=== PATIENT | female | born 1965 | race Caucasian/White ===

== ENCOUNTER 2016-05-08 06:43 | Outpatient (CLI) ==
[2016-05-08 07:16] LABS: BASOPHILS % (AUTO) 0.4 % (0.0-3.0); EOSINOPHILS # (AUTO) 0.2 K/ul (0.0-0.7); EOSINOPHILS % (AUTO) 2.8 % (0.0-7.0); HEMATOCRIT 40.3 % (37.0-47.0); HEMOGLOBIN 13.5 g/dl (12.0-16.0); IMMATURE GRANULOCYTE % (AUTO) 0.1 % (0.0-5.0); LYMPHOCYTES % (AUTO) 29.5 (10.0-50.0); MEAN CORPUSCULAR HEMOGLOBIN 28.5 pg (27.0-31.0); MEAN CORPUSCULAR HGB CONC 33.5 (31.8-35.4); MONOCYTES # (AUTO) 0.5 K/uL (0.4-2.0); MONOCYTES % (AUTO) 7.3 (0-10); NEUTROPHILS % (AUTO) 59.9; PLATELET COUNT 285 10^3/uL (140-440); RED BLOOD COUNT 4.74 10^6/ul (4.20-5.40); WHITE BLOOD COUNT 6.75 K/ul (4.6-10.2)
[2016-05-08 07:29] LABS: BILIRUBIN,URINE Negative (NEGATIVE); KETONES,URINE Negative (NEGATIVE); LEUKOCYTE ESTERASE ,URINE Negative (NEGATIVE); NITRITE,URINE Negative (NEGATIVE); PROTEIN,URINE Negative (NEGATIVE); URINE, BLOOD Trace-intact (NEGATIVE)
[2016-05-08 07:33] LABS: ALBUMIN 3.7 g/dL (3.4-5.0); ALBUMIN/GLOBULIN RATIO 1.03; ANION GAP 13.9; BILIRUBIN,TOTAL 0.54 mg/dL (0.00-1.20); BUN/CREATININE RATIO 17.33; CALCIUM 9.3 mg/dL (8.2-10.2); CHOL/HDL RATIO 2.7 (4.5-5.5); CREATININE 0.75 mg/dL (0.60-1.30); POTASSIUM 3.9 mmol/L (3.5-5.10); TOTAL PROTEIN 7.3 g/dL (6.4-8.2)
[2016-05-08 07:40] LABS: ADD URINE MICROSCOPIC YES
[2016-05-08 07:41] LABS: BACTERIA,URINE 3+ (NOT PRESENT)
== END 2016-05-08 06:44 | disposition home or self-care (01) ==
LOC: LAB 06:43
PROVIDERS: ATTEND Family Medicine
DX: I10 Essential (primary) hypertension (principal); E78.5 Hyperlipidemia, unspecified; M51.37 Other intervertebral disc degeneration, lumbosacral region; F32.9 Major depressive disorder, single episode, unspecified; I51.7 Cardiomegaly; N95.1 Menopausal and female climacteric states
CPT/HCPCS: 36415; 80053; 80061; 81001; 85025

== ENCOUNTER 2016-06-10 15:02 | Outpatient (CLI) ==
--- NOTE | 2016-06-10 15:35 | DI ---
EXAM: LEFT HAND THREE VIEWS HISTORY: Hand pain without injury FINDINGS: Bone and joint structures appear normal. There is no fracture, joint dislocation, bone density abnormality or soft tissue finding. IMPRESSION: Within normal limits.
--- NOTE | 2016-06-10 15:40 | DI ---
Exam: Three x-rays of the right hand. Comparison: Right wrist x-rays performed on 10/10/2007. Reason for study: Pain. FINDINGS: No acute fracture or dislocation. The joint spaces are well maintained. Mild degenerati ve changes are seen within the liz and fourth DIP joint. Impression: No acute fracture or dislocation is seen in the right hand.
== END 2016-06-10 15:03 | disposition home or self-care (01) ==
LOC: RAD 15:02
PROVIDERS: ATTEND Family Medicine
DX: M79.642 Pain in left hand (principal); M79.641 Pain in right hand; M79.645 Pain in left finger(s); M79.644 Pain in right finger(s)

== ENCOUNTER 2016-07-01 15:00 | Outpatient (RCR) ==
--- NOTE | 2016-06-30 10:01 | RS.OPPTEV2 ---
Date of Note: 06/29/16 Visit #: 1 Date of Evaluation: 06/29/16 Payer Source: Medicaid Date of Onset/Injury/Change in Status: 03/08/16 Treatment Diagnosis: Lumbago with right sciatica History of Condition/Mechanism of Injury:: Patient reports low back and right LE pain. Patient notes that she was lifting something heavy last year, and ever since then she has had trouble with her back. Patient is hoping to avoid surgery. States she had therapy here for the same thing last year and it helped. She also has an inversion table that she uses it at times. Prior Level of Function.....Patient was independent with: ADL's, Self Care, Work /Vocation, Caregiving, Ambulation/Mobility, Community Integration/Access Functional Limitations: ADL's, Reaching, Pushing, Pulling, Lifting, Carrying, Sitting, Standing, Bending, Squatting, Community Access/Integration Current Subjective/complaints:: Patient reports low back pain and sciatic pain down the right LE. States sometimes pain goes all the way down to the foot, sometimes just to the knee. She has noticed weakness at times in the right LE. The right hip joint hurts occasionally. She has tried ice, heat, icy hot. She started taking Neurontin a few weeks ago, and she feels it has helped. 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 Treatment Side (optional): Right Medical History Medical History: Unremarkable Surgical History: Tonsillectomy Smoking Status: Never smoker Diagnostic Testing/Imaging:: Reports no recent tests. Hx Home Medications: gabapentin, flexeril, meloxicam, skelaxin,lipitor, cozaar, naproxen Patient's Goals: Her goal is to get relief of pain and avoid back surgery. Pain Assessment - Pain Description Pain Location: lumbar/R hip region Current Pain Intensity: 6/10 Worst Pain Intensity: 10/10 Functional Outcome Measure Oswestry LBP: 42 - G Codes & Severity Modifier G Codes & Modifier: NA Source of G Code score: NA Observation - Observation Posture: Forward Head, Decreased Lumbar Lordosis Gait - Gait Pattern Gait Comments: Patient ambulates without an obvious gait deviation. - ROM Lumbar Flexion: Hand reach to Mid-Shins Sidebending to Left: Reach to Lateral Joint Line Sidebending to Right: Reach to Lateral Joint Line Comments: Lumbar extension WFL's. Reports mainly a "pull" felt with lumbar flexion and side bending. Bilateral LE AROM is WFL's. - Strength Trunk Rotation: 4- Good- Comments: bilateral LE strength generally 4 to 4+/5. - Special Tests ANA LUISA Test: Negative Left, Positive Right SLR Test: Negative Left, Positive Right Seated Dural Stretch Test: Negative Left, Positive Right SI Joint Compression: Positive Palpation Comments:: Patient reports tenderness with moderate pressure over the lumbar spinous processes of L2-L4. Demonstrates moderate muscle guarding along bilateral lumbar paraspinals. No tenderness reported with palpation to either SI joint or superior gluteal musculature. Sensation - Sensation Right Lower Extremity: Intact/Normal Left Lower Extremity: Intact/Normal Additional Comments: Additional Comments: right LE slightly longer in supine. HS length are unequal : right SLR to 40-45 degrees, left to 50 degrees. - Treatment Modality: Ultrasound Parameters/Method Applied: 1.5 w/cm2 continous X 10 mins to lumbar paraspinals with emphasis on right side. Patient Position: Right Sidelying Interventions - Exercise/Activities/Manual Therapy Exercises/Activities: Instructed in HS stretch, with main focus on the right. Manual Therapy: NA HOME EXERCISE PROGRAM: HS stretch (more on the right LE) - Charges Total Direct Minutes: 45 mins Total Treatment Time: 45 mins Procedures billed for this date of service:: NAGI [place], US Assessment Assessment: Patient presents to therapy with reports of low back and right LE pain. She demonstrates tenderness along the lumbar spine and moderate muscle guarding along the lumbar paraspinals. She demonstrates positive signs of pelvis dysfunction along with possible disc invovlement. She will benefit from modalities to reduce her tenderness, and progressed exercises to address flexibilty imbalances and progress lumbar/pelvis stability exercises to relieve her symptoms. Patient Education: Education of diagnosis, Body/Joint mechanics, Home Exercise Program, Education of Plan of Care Rehab Potential: Good Short Term Goals Goal #1: Patient independent with basic HEP. Goal to be met by: 07/14/16 Goal #2: Right LE pain localized to the right low back. Goal to be met by: 07/14/16 Goal #3: Pt will report minimal to no tenderness along the lumbar spine. Goal to be met by: 07/14/16 [facility] Goals Goal #1: Pt knows HEP and to cont. Ex's to maintain functional level at D/C. Goal to be met by: 08/09/16 Goal #2: Score on Oswestry LBP scale improved to 18. Goal to be met by: 08/09/16 Goal #3: Pt able to tolerate work activities without back or RLE pain. Goal to be met by: 08/09/16 Goal #4: Pt to demo. understanding of back safety and proper body mechanics. Goal to be met by: 08/09/16 Plan - Treatment to be Provided Procedures: Therapeutic Exercises, Therapeutic Activity, Manual Therapy, Patient Education Modalities: Electrical Stimulation, Ultrasound/Phonophoresis, Cryotherapy, Hot Packs - Treatment Plan Frequency: 3 X week Duration: 4 weeks ORDER # VISITS AND/OR THROUGH DATE: 08/09/16 - Treatment Code (1) Low back pain Qualifiers: Chronicity: acute Back pain laterality: right Sciatica presence: with sciatica Sciatica laterality: sciatica of right side Qualified Description: Acute right-sided low back pain with right-sided sciatica Qualifier Code(s): (M54.41) Lumbago with sciatica, right side (2) Degeneration of lumbar intervertebral disc Comments: M51.36 (3) SI (sacroiliac) joint dysfunction Comments: M53.3
--- NOTE | 2016-07-01 16:38 | RS.OPPTDN ---
Subjective Date of Note: 07/01/16 Visit #: 2 Date of Evaluation: 06/29/16 Payer Source: Medicaid Treatment Diagnosis: Lumbago with right sciatica Current Subjective/complaints:: Reports feeling pretty good at this time,her pain is less when lying down,varies while up. Pain Assessment - Pain Description Pain Location: lumbar/R hip region Pain Description: L hip /low back more than R side today Current Pain Intensity: 0 at rest,not rayed standing - Treatment Modality: Ultrasound Parameters/Method Applied: 10 mins. @ 1.5 w/cm2 ,continuous mode to lumbar. Patient Position: Right Sidelying - Heat/Cryotherapy Treatment: Hot Pack (20 mins. prior to US,and exercises) Interventions - Exercise/Activities/Manual Therapy Exercises/Activities: 20 mins. return demo of SKTC,pelvic tilts,piriformis stretch,90/90 hamstring stretches,LTR. Total minutes of Exercise: 20 Manual Therapy: NA Total minutes of Manual Therapy: 0 HOME EXERCISE PROGRAM: HS stretch (more on the right LE) - Charges Total Direct Minutes: 30 Total Treatment Time: 50 Procedures billed for this date of service:: hp,US,ex Assessment: Initially,patient reports LBP with flexion exercises ,but improved as exercises progressed.She has good hamstring extensibility bilaterally today.The L piriformis stretch elicits mild pain ,none on the R . Patient Education: Education of diagnosis, Body/Joint mechanics, Home Exercise Program, Home Safety, Activity Modification, Education of Plan of Care Short Term Goals Goal #1: Patient independent with basic HEP. Goal to be met by: 07/14/16 Progress towards Goal:: Progressing Goal #2: Right LE pain localized to the right low back. Goal to be met by: 07/14/16 Goal #3: Pt will report minimal to no tenderness along the lumbar spine. Goal to be met by: 07/14/16 Security Manager Goals Goal #1: Pt knows HEP and to cont. Ex's to maintain functional level at D/C. Goal to be met by: 08/09/16 Goal #2: Score on Oswestry LBP scale improved to 18. Goal to be met by: 08/09/16 Goal #3: Pt able to tolerate work activities without back or RLE pain. Goal to be met by: 08/09/16 Goal #4: Pt to demo. understanding of back safety and proper body mechanics. Goal to be met by: 08/09/16 Plan PLAN OF CARE EXPIRES ON:: 08/09/16 ORDER # VISITS AND/OR THROUGH DATE: 08/09/16 PLAN: Continue Plan of Care
== END 2016-07-05 ==
PROVIDERS: ATTEND Nurse Practitioner Family
DX: M51.36 Other intervertebral disc degeneration, lumbar region (principal); R20.2 Paresthesia of skin

== ENCOUNTER 2016-07-28 15:00 | Outpatient (RCR) ==
--- NOTE | 2016-07-06 16:28 | RS.OPPTDN ---
Subjective Date of Note: 07/06/16 Visit #: 3 Date of Evaluation: 06/29/16 Payer Source: Medicaid Treatment Diagnosis: Lumbago with right sciatica Current Subjective/complaints:: Reports her hips are bothering her a little more today,had busy day at work. Pain Assessment - Pain Description Pain Location: lumbar/R hip region Pain Description: Dull, Aching Pain Description: L hip /low back more than R side today Current Pain Intensity: 6/10 - Treatment Modality: Ultrasound Parameters/Method Applied: 10 mins. @ 1.5 w/cm2 to lumbar. Patient Position: Right Sidelying - Heat/Cryotherapy Treatment: Hot Pack (concurrent with e-stim) Interventions - Exercise/Activities/Manual Therapy Exercises/Activities: 20 mins. SKTC,pelvic tilts,piriformis stretch,90/90 hamstring stretches,LTR. Total minutes of Exercise: 20 Manual Therapy: NA Total minutes of Manual Therapy: 0 HOME EXERCISE PROGRAM: HS stretch (more on the right LE) - Charges Total Direct Minutes: 30 Total Treatment Time: 50 Procedures billed for this date of service:: hp,US,ex 1 Assessment: Patient has less muscle guarding today as the exercisesprogres.She has improved hamstring extensibility biaterallt.She is tighter in the R aspect of lumbar region ,noted especially with piriformis stretches today.She is motivated to improve and hopes to avoid surgery,uses inversion table daily for relief from LBP. Patient Education: Education of diagnosis, Body/Joint mechanics, Home Exercise Program, Home Safety, Activity Modification, Education of Plan of Care Patient demonstrates compliance with HEP?: Yes Short Term Goals Goal #1: Patient independent with basic HEP. Goal to be met by: 07/14/16 Progress towards Goal:: Progressing Goal #2: Right LE pain localized to the right low back. Goal to be met by: 07/14/16 Progress towards Goal:: Progressing Goal #3: Pt will report minimal to no tenderness along the lumbar spine. Goal to be met by: 07/14/16 Detention Goals Goal #1: Pt knows HEP and to cont. Ex's to maintain functional level at D/C. Goal to be met by: 08/09/16 Progress towards goal: Progressing Goal #2: Score on Oswestry LBP scale improved to 18. Goal to be met by: 08/09/16 Goal #3: Pt able to tolerate work activities without back or RLE pain. Goal to be met by: 08/09/16 Goal #4: Pt to demo. understanding of back safety and proper body mechanics. Goal to be met by: 08/09/16 Progress towards goal: Progressing Plan PLAN OF CARE EXPIRES ON:: 08/09/16 ORDER # VISITS AND/OR THROUGH DATE: 08/09/16 PLAN: Continue Plan of Care
--- NOTE | 2016-07-07 16:28 | RS.OPPTDN ---
Subjective Date of Note: 07/07/16 Visit #: 4 Date of Evaluation: 06/29/16 Payer Source: Medicaid Treatment Diagnosis: Lumbago with right sciatica Current Subjective/complaints:: Reports the low back feels better today ,achng only ,no sharp pain . Pain Assessment - Pain Description Pain Location: R SI joint Pain Description: Dull Current Pain Intensity: not rated,"very minimal" - Treatment Modality: Ultrasound Parameters/Method Applied: 10 mins. @ 1.5 w/cm2 ,continuous mode to R SI joint. Patient Position: Right Sidelying - Heat/Cryotherapy Treatment: Hot Pack (20 mins. prior to US and ex.) Interventions - Exercise/Activities/Manual Therapy Exercises/Activities: 20 mins. SKTC,pelvic tilts,piriformis stretch,90/90 hamstring stretches,SI muscle energy exercises of resisted hip flexion/resisted knee extension. Total minutes of Exercise: 20 Manual Therapy: NA Total minutes of Manual Therapy: 0 HOME EXERCISE PROGRAM: HS stretch (more on the right LE) - Charges Total Direct Minutes: 30 Total Treatment Time: 50 Procedures billed for this date of service:: hp,US,ex Assessment: Patient has less stretch discomfort with all stretches today.The R piriformis is tighter than the L today,but responds well to prolonged static stretch.She is compliant to PT recommendations. Patient Education: Education of diagnosis, Body/Joint mechanics, Home Exercise Program, Home Safety, Activity Modification, Education of Plan of Care Patient demonstrates compliance with HEP?: Yes Short Term Goals Goal #1: Patient independent with basic HEP. Goal to be met by: 07/14/16 Progress towards Goal:: Progressing Goal #2: Right LE pain localized to the right low back. Goal to be met by: 07/14/16 Progress towards Goal:: Progressing Goal #3: Pt will report minimal to no tenderness along the lumbar spine. Goal to be met by: 07/14/16 Progress towards Goal:: Progressing [employer] Goals Goal #1: Pt knows HEP and to cont. Ex's to maintain functional level at D/C. Goal to be met by: 08/09/16 Progress towards goal: Progressing Goal #2: Score on Oswestry LBP scale improved to 18. Goal to be met by: 08/09/16 Goal #3: Pt able to tolerate work activities without back or RLE pain. Goal to be met by: 08/09/16 Goal #4: Pt to demo. understanding of back safety and proper body mechanics. Goal to be met by: 08/09/16 Progress towards goal: Progressing Plan PLAN OF CARE EXPIRES ON:: 08/09/16 ORDER # VISITS AND/OR THROUGH DATE: 08/09/16 PLAN: Continue Plan of Care
--- NOTE | 2016-07-13 16:31 | RS.OPPTDN ---
Subjective Date of Note: 07/13/16 Visit #: 5 Date of Evaluation: 06/29/16 Payer Source: Medicaid Treatment Diagnosis: Lumbago with right sciatica Current Subjective/complaints:: Patient reports she is feeling better today, minimal back pain currently,used her inversion table at home before coming to her PT appt. Pain Assessment - Pain Description Pain Location: R SI joint Pain Description: Dull Current Pain Intensity: not rated - Heat/Cryotherapy Treatment: Hot Pack (20 mis. prior to exercises.) Interventions - Exercise/Activities/Manual Therapy Exercises/Activities: 35 mins. total,beginning with pelvic tilts,SKTC ,90/90 hamstring stretches, then core strengthening ,including seated on therapy ball , standing with therapy ball against wall,doing alternating UE/LE AROM.Patient. also instructed in postural pullbacks today with yellow theraband at different levels for trunk extensors strengthening. Total minutes of Exercise: 35 Manual Therapy: NA Total minutes of Manual Therapy: 0 HOME EXERCISE PROGRAM: HS stretch (more on the right LE) - Charges Total Direct Minutes: 35 Total Treatment Time: 55 Procedures billed for this date of service:: hp,ex 2 Assessment: Patient tolerates exercises well with report of fatigue only,no increase in back pain.She has good postural awareness,motivated to improve. Patient Education: Education of diagnosis, Body/Joint mechanics, Home Exercise Program, Home Safety, Activity Modification, Education of Plan of Care Short Term Goals Goal #1: Patient independent with basic HEP. Goal to be met by: 07/14/16 Progress towards Goal:: Partially Met Goal #2: Right LE pain localized to the right low back. Goal to be met by: 07/14/16 Progress towards Goal:: Progressing Goal #3: Pt will report minimal to no tenderness along the lumbar spine. Goal to be met by: 07/14/16 Progress towards Goal:: Partially Met [facility] Goals Goal #1: Pt knows HEP and to cont. Ex's to maintain functional level at D/C. Goal to be met by: 08/09/16 Progress towards goal: Partially Met Goal #2: Score on Oswestry LBP scale improved to 18. Goal to be met by: 08/09/16 Goal #3: Pt able to tolerate work activities without back or RLE pain. Goal to be met by: 08/09/16 Progress towards goal: Progressing Goal #4: Pt to demo. understanding of back safety and proper body mechanics. Goal to be met by: 08/09/16 Progress towards goal: Progressing Plan PLAN OF CARE EXPIRES ON:: 08/09/16 ORDER # VISITS AND/OR THROUGH DATE: 08/09/16 PLAN: Continue Plan of Care
--- NOTE | 2016-07-15 16:32 | RS.OPPTDN ---
Subjective Date of Note: 07/15/16 Visit #: 6 Date of Evaluation: 06/29/16 Payer Source: Medicaid Treatment Diagnosis: Lumbago with right sciatica Current Subjective/complaints:: Patient reports no back pain at this time,is pleased with her progress.We discussed we would still apply moist heat to assist with the stretches. - Heat/Cryotherapy Treatment: Hot Pack (20 mins. tolumbar prior to stretches) Interventions - Exercise/Activities/Manual Therapy Exercises/Activities: 30 mins. total,beginning with pelvic tilts,SKTC ,90/90 hamstring stretches, maintaining pelvic tilts while doing SLR's,HEP review. Total minutes of Exercise: 30 Manual Therapy: NA Total minutes of Manual Therapy: 0 HOME EXERCISE PROGRAM: SKTC,DKTC,piriformis stretches,pelvic tilts,bridging,90/ 90 hamstring stretches. - Charges Total Direct Minutes: 30 Total Treatment Time: 50 Procedures billed for this date of service:: hp,ex 2 Assessment: Patient is progressing well toward rehab goals,with pain level decreasing as sh econtinues therapy.She is very compliant to HEP,continues to use inversion table at home when needed. Patient Education: Education of diagnosis, Body/Joint mechanics, Home Exercise Program, Home Safety, Activity Modification, Education of Plan of Care Patient demonstrates compliance with HEP?: Yes Short Term Goals Goal #1: Patient independent with basic HEP. Goal to be met by: 07/14/16 Progress towards Goal:: Partially Met Goal #2: Right LE pain localized to the right low back. Goal to be met by: 07/14/16 Progress towards Goal:: Partially Met Goal #3: Pt will report minimal to no tenderness along the lumbar spine. Goal to be met by: 07/14/16 Progress towards Goal:: Met Correction Goals Goal #1: Pt knows HEP and to cont. Ex's to maintain functional level at D/C. Goal to be met by: 08/09/16 Progress towards goal: Partially Met Goal #2: Score on Oswestry LBP scale improved to 18. Goal to be met by: 08/09/16 Goal #3: Pt able to tolerate work activities without back or RLE pain. Goal to be met by: 08/09/16 Progress towards goal: Progressing Goal #4: Pt to demo. understanding of back safety and proper body mechanics. Goal to be met by: 08/09/16 Progress towards goal: Partially Met Plan PLAN OF CARE EXPIRES ON:: 08/09/16 ORDER # VISITS AND/OR THROUGH DATE: 08/09/16 PLAN: Continue Plan of Care
--- NOTE | 2016-07-21 08:27 | RS.CXNS ---
Date of scheduled appointment: 07/21/16 Type: Cancel (Called,but unknown reason.)
--- NOTE | 2016-07-27 16:22 | RS.OPPTDN ---
Subjective Date of Note: 07/27/16 Visit #: 7 Date of Evaluation: 06/29/16 Payer Source: Medicaid Treatment Diagnosis: Lumbago with right sciatica Current Subjective/complaints:: Reports working today,has moderate R hip pain at this time. Pain Assessment - Pain Description Pain Location: Lumbar/SI joints Pain Description: Dull Pain Description: R hip/gluteal area Current Pain Intensity: moderate 4-5/10 - Heat/Cryotherapy Treatment: Hot Pack (20 mins. to lumbar/R hip in L side-lying) Interventions - Exercise/Activities/Manual Therapy Exercises/Activities: 30 mins. total,beginning with pelvic tilts,SKTC ,90/90 hamstring stretches,piriformis stretches,bridging,isometric hip abd/add,prone on elbows. Total minutes of Exercise: 30 Manual Therapy: NA Total minutes of Manual Therapy: 0 HOME EXERCISE PROGRAM: SKTC,DKTC,piriformis stretches,pelvic tilts,bridging,90/ 90 hamstring stretches. - Charges Total Direct Minutes: 30 Total Treatment Time: 50 Procedures billed for this date of service:: hp,ex 2 Assessment: Patient's pain is primarily in the R piriformis today.She has good return demo of exercises today.She has moderate tightness in the hip flexors bilaterally,and we discussed to focus on stretches for the anterior and posterior pelvic girdle and strengthen the core. Patient Education: Education of diagnosis, Body/Joint mechanics, Home Exercise Program, Home Safety, Activity Modification, Education of Plan of Care Patient demonstrates compliance with HEP?: Yes Short Term Goals Goal #1: Patient independent with basic HEP. Goal to be met by: 07/14/16 Progress towards Goal:: Met Goal #2: Right LE pain localized to the right low back. Goal to be met by: 07/14/16 Progress towards Goal:: Partially Met Goal #3: Pt will report minimal to no tenderness along the lumbar spine. Goal to be met by: 07/14/16 Progress towards Goal:: Met [facility] Goals Goal #1: Pt knows HEP and to cont. Ex's to maintain functional level at D/C. Goal to be met by: 08/09/16 Progress towards goal: Met Goal #2: Score on Oswestry LBP scale improved to 18. Goal to be met by: 08/09/16 Goal #3: Pt able to tolerate work activities without back or RLE pain. Goal to be met by: 08/09/16 Progress towards goal: Progressing Goal #4: Pt to demo. understanding of back safety and proper body mechanics. Goal to be met by: 08/09/16 Progress towards goal: Partially Met Plan PLAN OF CARE EXPIRES ON:: 08/09/16 ORDER # VISITS AND/OR THROUGH DATE: 08/09/16 PLAN: Plan for Discharge
--- NOTE | 2016-07-28 16:22 | RS.OPPTDC ---
Date of Discharge: 07/28/16 Date of Evaluation: 06/29/16 Number of Visits: 8 Treatment Diagnosis: Lumbago with right sciatica Current Level of Function: Independent in community with intermittent LBP. Current Complaints/Gains: Patient feels she has slowly improved,but her pain level varies depending upon amount of daily activities. Pain Assessment - Pain Description Pain Location: Lumbar/SI joints Pain Description: Dull Pain Description: R hip/gluteal area Current Pain Intensity: minimal Functional Outcome Measure Oswestry LBP: 30 - G Codes & Severity Modifier G Codes & Modifier: NA Source of G Code score: NA Observation - Observation Posture: Anterior Pelvic Tilt Gait - Gait Pattern General Gait Pattern Observation: No Deviations/Normal General Range of Motion: WFL Muscle Strength: 4+/5 to 5-/5 - Heat/Cryotherapy Treatment: Hot Pack (20 mins. prior to exercises) Interventions - Exercise/Activities/Manual Therapy Exercises/Activities: 30 mins. total,beginning with pelvic tilts,SKTC ,DKTC,90/ 90 hamstring stretches,pirifomis stretches,abdominal crunches,LTR in hooklying.Written copies of HEP given today. Total minutes of Exercise: 30 Manual Therapy: NA HOME EXERCISE PROGRAM: SKTC,DKTC,piriformis stretches,pelvic tilts,bridging,90/ 90 hamstring stretches.LTR in hooklying. - Charges Total Direct Minutes: 30 Total Treatment Time: 50 Procedures billed for this date of service:: hp,ex 2 Assessment Assessment: Patient has met STG's,partially met LTG's.She has written copies of HEP and understands them well.She is aware of D/C plan today. Patient Education: Education of diagnosis, Body/Joint mechanics, Home Exercise Program, Home Safety, Activity Modification, Education of Plan of Care Rehab Potential: Good Short Term Goals Goal #1: Patient independent with basic HEP. Goal to be met by: 07/14/16 Progress towards Goal:: Met Goal #2: Right LE pain localized to the right low back. Goal to be met by: 07/14/16 Progress towards Goal:: Met Goal #3: Pt will report minimal to no tenderness along the lumbar spine. Goal to be met by: 07/14/16 Progress towards Goal:: Met [employer] Goals Goal #1: Pt knows HEP and to cont. Ex's to maintain functional level at D/C. Goal to be met by: 08/09/16 Progress towards goal: Met Goal #2: Score on Oswestry LBP scale improved to 18. Goal to be met by: 08/09/16 (30) Progress towards goal: Progressing Goal #3: Pt able to tolerate work activities without back or RLE pain. Goal to be met by: 08/09/16 Progress towards goal: Partially Met Goal #4: Pt to demo. understanding of back safety and proper body mechanics. Goal to be met by: 08/09/16 Progress towards goal: Partially Met Plan Reason for Discharge:: No Further Skilled Therapy Indicated
== END 2016-08-05 ==
PROVIDERS: ATTEND Nurse Practitioner Family
DX: M51.36 Other intervertebral disc degeneration, lumbar region (principal); R20.2 Paresthesia of skin

== ENCOUNTER 2016-11-16 07:05 | Outpatient (CLI) ==
[2016-11-16 07:18] LABS: BASOPHILS % (AUTO) 0.6 % (0.0-3.0); EOSINOPHILS # (AUTO) 0.3 K/ul (0.0-0.7); EOSINOPHILS % (AUTO) 4.6 % (0.0-7.0); HEMATOCRIT 37.7 % (37.0-47.0); HEMOGLOBIN 12.7 g/dl (12.0-16.0); IMMATURE GRANULOCYTE % (AUTO) 0.3 % (0.0-5.0); LYMPHOCYTES # (AUTO) 2.1 K/uL (0.60-3.4); LYMPHOCYTES % (AUTO) 32.4 (10.0-50.0); MEAN CORPUSCULAR HEMOGLOBIN 28.4 pg (27.0-31.0); MEAN CORPUSCULAR HGB CONC 33.7 (31.8-35.4); MEAN CORPUSCULAR VOLUME 84.3 fl (81.0-99.0); MONOCYTES # (AUTO) 0.4 K/uL (0.4-2.0); MONOCYTES % (AUTO) 6.8 (0-10); NEUTROPHILS # (AUTO) 3.5 K/ul (2.0-6.9); NEUTROPHILS % (AUTO) 55.3; PLATELET COUNT 244 10^3/uL (140-440); RED BLOOD COUNT 4.47 10^6/ul (4.20-5.40); WHITE BLOOD COUNT 6.32 K/ul (4.6-10.2)
[2016-11-16 07:27] LABS: BILIRUBIN,URINE Negative (NEGATIVE); KETONES,URINE Negative (NEGATIVE); LEUKOCYTE ESTERASE ,URINE Negative (NEGATIVE); NITRITE,URINE Negative (NEGATIVE); PH,URINE 6.5 (5-9); PROTEIN,URINE Negative (NEGATIVE); URINE, BLOOD Negative (NEGATIVE)
[2016-11-16 07:31] LABS: ADD URINE MICROSCOPIC YES; BACTERIA,URINE 2+ (NOT PRESENT)
[2016-11-16 07:58] LABS: ALBUMIN 3.3 g/dL (3.4-5.0); BILIRUBIN,TOTAL 0.32 mg/dL (0.00-1.20); BUN/CREATININE RATIO 15.71; CHOL/HDL RATIO 2.7 (4.5-5.5); CREATININE 0.7 mg/dL (0.60-1.30); TOTAL PROTEIN 6.6 g/dL (6.4-8.2)
== END 2016-11-16 07:06 | disposition home or self-care (01) ==
LOC: LAB 07:05
PROVIDERS: ATTEND Family Medicine
DX: E78.5 Hyperlipidemia, unspecified (principal); I10 Essential (primary) hypertension; F32.9 Major depressive disorder, single episode, unspecified; N94.3 Premenstrual tension syndrome; Z79.899 Other long term (current) drug therapy
CPT/HCPCS: 36415; 80053; 80061; 81001; 84439; 84443; 85025

== ENCOUNTER 2017-04-14 07:23 | Outpatient (CLI) | END 2017-04-14 07:24 | disposition home or self-care (01) | LOC: LAB 07:23 | PROVIDERS: ATTEND Family Medicine | DX: E78.5 Hyperlipidemia, unspecified (principal); I10 Essential (primary) hypertension; F31.9 Bipolar disorder, unspecified; M51.16 Intervertebral disc disorders with radiculopathy, lumbar region; Z79.890 Hormone replacement therapy | CPT/HCPCS: 36415; 80053; 80061; 81001; 82306; 85025 ==

== ENCOUNTER 2017-07-03 06:30 | Outpatient (CLI) | END 2017-07-03 06:31 | disposition home or self-care (01) | LOC: LAB 06:30 | PROVIDERS: ATTEND Family Medicine | DX: E78.2 Mixed hyperlipidemia (principal); I10 Essential (primary) hypertension; F32.9 Major depressive disorder, single episode, unspecified; Z79.899 Other long term (current) drug therapy | CPT/HCPCS: 36415; 80053; 80061; 81001; 85025 ==

== ENCOUNTER 2018-01-12 06:30 | Outpatient (CLI) | END 2018-01-12 06:31 | disposition home or self-care (01) | LOC: LAB 06:30 | PROVIDERS: ATTEND Family Medicine | DX: E78.2 Mixed hyperlipidemia (principal); I10 Essential (primary) hypertension; F32.9 Major depressive disorder, single episode, unspecified; Z79.899 Other long term (current) drug therapy; Z00.00 Encounter for general adult medical examination without abnormal findings | CPT/HCPCS: 36415; 80053; 80061; 81001; 82306; 84439; 84443; 85025 ==

== ENCOUNTER 2018-08-23 09:54 | Emergency (ER) ==
[2018-08-23 10:01] VITALS: BP 143/80; TEMP 97.6; BMI 30.9
--- NOTE | 2018-08-23 10:26 | ED.PDOC ---
General ED Provider: Dr. ANYA GUPTA Chief Complaint: Diarrhea Stated Complaint: Diarrhea BM for past 2 days. Noted Blood in Stool this AM. Over weekend was handling a sick kitten that had diarrhea Time Seen by Physician: 10:15 Mode of Arrival: Walk-In Information Source: Patient Exam Limitations: No limitations Primary Care Provider: ALEX TOLEDO Nursing and Triage Documentation Reviewed and Agree: Yes Does patient meet sepsis criteria?: No System Inflammatory Response Syndrome: Not Applicable Sepsis Protocol: For patient's 13 years and over: Temp is 96.8 and below OR 101 and greater Pulse >90 BPM Resp >20/minute Acutely Altered Mental Status Are patient's symptoms suggestive of a new infection, such as: -Pneumonia -Skin, Soft Tissue -Endocarditis -UTI -Bone, Joint Infection -Implantable Device -Acute Abdominal Infection -Wound Infection -Meningitis -Blood Stream Catheter Infection -Unknown GI Complaint Exam - Vomiting/Diarrhea Complaint/Exam Onset/Duration: 2 days Symptoms Are: Still present Episodes of Vomiting over last 24 Hours: 0 Character of Diarrhea: Reports: Watery, Mucoid, Malodorous Alleviating: Reports: None Associated Signs and Symptoms: Reports: Cramping Review of Systems - Review Of Systems Constitutional: Reports: Weakness Eyes: Reports: No symptoms Ears, Nose, Mouth, Throat: Reports: No symptoms Respiratory: Reports: No symptoms Cardiac: Reports: No symptoms GI: Reports: Abdomen distended, Diarrhea : Reports: No symptoms Musculoskeletal: Reports: No symptoms Skin: Reports: No symptoms Neurological: Reports: No symptoms Endocrine: Reports: No symptoms Hematologic/Lymphatic: Reports: No symptoms All Other Systems: Reviewed and Negative Past Medical History - Past Medical History Previously Healthy: Yes Endocrine: Reports: None Cardiovascular: Reports: Hypertension Respiratory: Reports: None Hematological: Reports: None Gastrointestinal: Reports: None Genitourinary: Reports: None Neuro/Psych: Reports: Depression Musculoskeletal: Reports: None Cancer: Reports: None Last Menstrual Period: years - Surgical History General Surgical History: Reports: None - Family History Family History: Reports: None - Social History Smoking Status: Never smoker Hx Substance Use: No Alcohol Screening: Occasionally - Immunizations Tetanus Shot up to Date: No Physical Exam - Physical Exam Appearance: Well-appearing Ill-appearing: None Pain Distress: None Eyes: DARREL ENT: Ears normal, Nose normal, Oropharynx normal Neck: Supple Respiratory: Airway patent, Breath sounds clear, Breath sounds equal, Respirations nonlabored Cardiovascular: RRR, Pulses normal, No rub, No murmur GI/: Soft, Tender, Bowel sounds hyperactive (no guarding or rebound tenderness ) Musculoskeletal: Normal strength, ROM intact, No edema, No calf tenderness Skin: Warm, Dry, Normal color Neurological: Sensation intact, Motor intact, Reflexes intact, Cranial nerves intact, Alert, Oriented Psychiatric: Affect appropriate, Mood appropriate Critical Care Note - Critical Care Note Total Time (mins): 60 Course - Course Hematology/Chemistry: 08/23/18 10:40 08/23/18 10:40 Orders, Labs, Meds: Lab Review 08/23/18 08/23/18 08/23/18 10:40 10:40 12:49 WBC 6.07 RBC 4.66 Hgb 13.2 Hct 39.6 MCV 85.0 MCH 28.3 MCHC 33.3 RDW Coeff of Nathalie 12.5 Plt Count 248 Immature Gran % (Auto) 0.3 Neut % (Auto) 73.4 Lymph % (Auto) 16.8 [place] % (Auto) 9.1 Eos % (Auto) 0.2 Baso % (Auto) 0.2 Immature Gran # (Auto) 0.0 Neut # (Auto) 4.5 Lymph # (Auto) 1.0 [place] # (Auto) 0.6 Eos # (Auto) 0.0 Baso # (Auto) 0.0 Sodium 137.7 Potassium 3.75 Chloride 100.4 Carbon Dioxide 27.3 Anion Gap 13.75 BUN 7.9 Creatinine 0.55 L Estimated GFR (MDRD) 115.00 BUN/Creatinine Ratio 14.36 Glucose 131.0 H Calcium 9.66 Total Bilirubin 0.31 AST 21.8 ALT 19.3 Alkaline Phosphatase 71.8 Total Protein 7.38 Albumin 4.51 Globulin 2.87 Albumin/Globulin Ratio 1.57 Amylase 47.5 Lipase 56.7 Urine Color Yellow Urine Clarity Turbid Urine pH 5.5 Ur Specific [place] >=1.030 Urine Protein Trace Urine Glucose (UA) Negative Urine Ketones Negative Urine Blood Trace-lysed Urine Nitrite Negative Urine Bilirubin Negative Urine Urobilinogen 0.2 Ur Leukocyte Esterase Negative Ur Squamous Epith Cells Not present Amorphous Sediment 3+ Urine Bacteria 1+ Orders Category Date Time Status C-DIFF MONITORING (NURSING) BID CARE 08/23/18 11:53 Active AMYLASE Stat LAB 08/23/18 10:40 Completed CBC W/ AUTO DIFF Stat LAB 08/23/18 10:40 Completed CMP [COMPREHENSIVE METABOLIC PANEL] Stat LAB 08/23/18 10:40 Completed GUAIAC [OCCULT BLOOD, STOOL] Stat LAB 08/23/18 12:49 Ordered LIPASE Stat LAB 08/23/18 10:40 Completed OVA AND PARASITES EXAM Stat LAB 08/23/18 10:58 Ordered STOOL CULTURE Stat LAB 08/23/18 11:00 Results UA [URINALYSIS C & S IF INDICATED] Stat LAB 08/23/18 12:49 Completed URINE CULTURE Stat LAB 08/23/18 12:49 Received c-diff [C. DIFFICILE] Routine LAB 08/23/18 13:04 Ordered ABDOMEN, SERIES FLAT & UPRIGHT Stat RADS 08/23/18 10:34 Completed Vital Signs: Temp Pulse Resp BP Pulse Ox 08/23/18 09:54 97.6 F 106 H 18 143/80 H 94 L Departure - Departure Time of Disposition: 13:45 Disposition: HOME SELF-CARE Discharge Problem: Acute diarrhea, Hematochezia Instructions: Gastroenteritis (ED) Condition: Good Pt referred to PMD for follow-up: Yes (See PCP in next 7 days) IPMP verified?: No Additional Instructions: Remain well hydrated Clear liq diet Advance diet per tolerance Avoid antispsmodics If symptoms worsen return to ER Prescriptions: Ciprofloxacin HCl [Cipro] 500 mg PO BID #10 tablet Allergies/Adverse Reactions: Allergies No Known Allergies Allergy (Verified 08/23/18 10:07) Home Medications: Ambulatory Orders Estradiol 2 mg PO DAILY 08/07/14 Lisinopril 5 mg PO DAILY 08/07/14 Medroxyprogesterone Acetate 2.5 mg PO DAILY 08/07/14 Multi Vitamin Daily 1 each PO DAILY 08/07/14 Atorvastatin Calcium [Lipitor] 10 mg PO BEDTIME 08/23/18 Ciprofloxacin HCl [Cipro] 500 mg PO BID #10 tablet 08/23/18 Paroxetine HCl [Paxil] 10 mg PO DAILY 08/23/18 Risperidone [Risperdal] 0.25 mg PO DAILY 08/23/18 Disposition Discussed With: Patient
--- NOTE | 2018-08-23 12:03 | DI ---
EXAM: Upright and supine AP views of the abdomen HISTORY: Diarrhea and cramping COMPARISON: None available FINDINGS: No free intraperitoneal air is identified. No abnormal bowel dilation is seen. No abnormal calcific ations are evident. There is mild lumbar dextrocurvature. IMPRESSION: No evidence of bowel obstruction.
== END 2018-08-23 14:09 | disposition home or self-care (01) ==
LOC: ED 09:54
DX: R19.7 Diarrhea, unspecified (principal); K92.1 Melena; R53.1 Weakness; I10 Essential (primary) hypertension; Z79.899 Other long term (current) drug therapy
CPT/HCPCS: 36415; 80053; 81001; 82150; 82272; 83690; 85025; 87015; 87045; 87086; 87186; 87493; 87899; 99283